=== PATIENT | female | born 1990 ===

== ENCOUNTER 2016-05-23 17:23 | Emergency (ER) | payer OTHER ==
[~2016-05-23] VITALS: Ht 167.6 cm; Wt 105.9 kg
[2016-05-23 17:29] VITALS: BP 127/69; PULSE 66; TEMP 98
[2016-05-23] MEDS ORDERED: AMOXICILLIN 8751 TAB PO (18:11)
[2016-05-23] MEDS ORDERED: NORCO 325 MG-51 TAB PO (18:11)
== END 2016-05-23 18:23 | disposition home or self-care (01) ==
LOC: COL.ER 17:23 → EDBD 17:38 → COL.ER 18:23
DX: J32.1 Chronic frontal sinusitis (principal)